=== PATIENT | male | born 2000 | race American Indian/Alaskan Native ===

== ENCOUNTER 2023-01-25 09:44 | Emergency (ER) | payer OTHER ==
[~2023-01-25] VITALS: Ht 177.8 cm; Wt 77.1 kg
[~2023-01-25 09:44] MED LIST: IBUP400 PO; Norco 5-325 Ta1 EACH PO
[2023-01-25] MEDS ORDERED: DOCU100 PO (10:41)
[2023-01-25] MEDS ORDERED: MIRALAX17 GM PO (10:41)
[2023-01-25 10:45] VITALS: BP 120/63
== END 2023-01-25 10:56 | disposition home or self-care (01) ==
LOC: ER 09:44
DX: K59.00 Constipation, unspecified (principal); K92.1 Melena; F17.290 Nicotine dependence, other tobacco product, uncomplicated
CPT/HCPCS: 74019; 82947